=== PATIENT | male | born 1995 | race African-American/Black ===

== ENCOUNTER 2025-05-22 08:45 | Outpatient (AMB) | payer OTHER, SELFPAY ==
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
[2025-05-22 08:57] VITALS: BP 116/75; PULSE 54; RESP 16; TEMP 36.7; O2SAT 98; BMI 34.8
== END 2025-05-22 09:37 | disposition home or self-care (01) ==
LOC: HO.HMCFM 08:46
PROVIDERS: PCP Nurse Practitioner Family; Visit Provider Nurse Practitioner Family
DX: Z00.00 Encounter for general adult medical examination without abnormal findings (principal); R10.A2 Flank pain, left side; F41.9 Anxiety disorder, unspecified; E66.9 Obesity, unspecified; Z68.34 Body mass index [BMI] 34.0-34.9, adult

== ENCOUNTER 2025-05-22 08:45 | Outpatient (REF) | payer OTHER, SELFPAY ==
[2025-05-22 11:28] LABS: MANUAL DIFF FLAG NO
[2025-05-22 11:30] LABS: Appearance Urine Clear; Glucose Urine UA Negative (Negative); PH 6.0 (5.0-9.0); Specific Gravity - Urine 1.025 (1.005-1.025)
[2025-05-22 11:35] LABS: Hematocrit 48.0 % (42.0-52.0); Hemoglobin 16.4 g/dl (14.0-18.0); Imm Gran Abs Auto 0.03 X10*3/uL (0.00-0.03); Imm Gran Pct Auto 0.4 % (0.0-0.4); Lymphocytes Absolute Auto 2.1 X10*3/uL (1.2-4.9); Mean Corpuscular HGB Conc 34.2 g/dl (31.0-36.0); Mean Corpuscular Hemoglobin 30.0 pg (27.0-33.0); Mean Corpuscular Volume 87.9 fL (80.0-98.0); NRBC Abs Auto 0.000 X10*3/uL (0.0-0.012); NRBC Pct Auto 0.0 /100WBC (0.0-0.2); Platelet Count 203 X10*3/uL (160-400); Red Blood Count 5.46 X10*6/uL (4.60-5.80); White Blood Count 7.2 X10*3/uL (4.8-10.8)
[2025-05-22 13:15] LABS: Anion Gap 11 (12-20)
[2025-05-22 13:19] LABS: Alanine Aminotransferase 43 U/L (0-40); Albumin Level 4.6 g/dL (3.5-5.0); Alkaline Phosphatase 81 U/L (39-117); Aspartate Amino Transferase 30 U/L (5-37); Blood Urea Nitrogen 13 mg/dL (9-16); Calcium 9.3 mg/dL (8.4-10.2); Carbon Dioxide 25 mmol/L (22-29); Chloride 108 mmol/L (96-108); Cholesterol 214 mg/dL (<200); Estimated Glomerular Filt Rate > 60; HDL Cholesterol 50 mg/dL (>40); Potassium 3.9 mmol/L (3.3-5.1); Sodium 140 mmol/L (135-145); Total Protein 7.9 g/dL (6.5-8.0); Triglycerides 72 mg/dL (<150)
== END 2025-05-22 08:46 | disposition home or self-care (01) ==
LOC: HO.WFDLDS 08:45
PROVIDERS: PCP Nurse Practitioner Family; Visit Provider Nurse Practitioner Family
DX: Z00.00 Encounter for general adult medical examination without abnormal findings (principal); Z01.00 Encounter for examination of eyes and vision without abnormal findings; F41.9 Anxiety disorder, unspecified; R10.A2 Flank pain, left side; E66.9 Obesity, unspecified; Z68.34 Body mass index [BMI] 34.0-34.9, adult
CPT/HCPCS: 36415; 80053; 80061; 81003; 82043; 82306; 82570; 84443; 85025; 96127; 99202; 99385

== ENCOUNTER 2025-06-01 12:29 | Outpatient (AMB) | payer OTHER, SELFPAY ==
--- NOTE | 2025-06-01 12:23 | MHC.PC.OV ---
Intake Visit Reasons: Tele 2-3 wks labs review /anxiety Intake Note: patient here for Telehealth follow up on labs review and anxiety Visiting Teacher Required: No Allergies morphine Allergy (Unknown, Verified 06/01/25 12:26) Unknown oxycodone Allergy (Unknown, Verified 06/01/25 12:26) Dizziness Tobacco use date assessed: 06/01/25 Dental Screening Dental Screen Date: 06/01/25 Did you have a dental visit in the last 12 months?: No Did you have a dental problem in the last 6 months where you did not have access to dental care?: No Was dental information given to patient?: No HPI HPI Comments History of Present Illness Details 30-year-old male presents for a telehealth visit for review of recent lab results. He notes that he is anxious all this time. He has cut done on cannabis use and has been smoking 1/4 of a gram once daily since his last visit. He drinks 2-3 beers once weekly. He is not interested in psychotherapy at this time. No acute symptoms at this time. 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 1. Little interest or pleasure in doing things: not at all 2. Feeling down, depressed, or hopeless: not at all 3. Trouble falling or staying asleep, or sleeping too much: several days 4. Feeling tired or having little energy: several days 5. Poor appetite or overeating: several days 6. Feeling bad about yourself - or that you are a failure or have let yourself or your family down: not at all 7. Trouble concentrating on things, such as reading the newspaper or watching television: not at all 8. Moving or speaking so slowly that other people could have noticed. Or the opposite - being so fidgety or restless that you have been moving around a lot more than usual: not at all 9. Thoughts that you would be better off or of hurting yourself in some way: not at all Total score: 3 Depression Screening Interpretation: Negative Depression Screening Done: Yes 78029 - PHQ-9 Billing: Yes Source: Developed by Drs. Kain Conner, Marisol Quintana, Meng Jacinto and colleagues, with an educational michell from [employer]. Thrive Questionnaire Date Thrive assessed: 05/22/25 ROBEL-7 AMB Questionnaire ROBEL-7 Date ROBEL - 7 assessed: 06/01/25 Feeling nervous, anxious, or on edge: 3 = Nearly every day Not being able to stop or control worryin = Several days Worrying too much about different things: 1 = Several days Trouble relaxin = Not at all Being so restless that it is hard to sit still: 1 = Several days Becoming easily annoyed or irritable: 1 = Several days Feeling afraid as if something awful might happen: 0 = Not at all Total ROBEL-7 score (0-4 normal; 5-9 mild; 10-14 moderate; 15-21 severe): 7 Source: Developed by Drs. Kain Conner, Marisol Quintana, Meng Jacinto and colleagues, with an educational michell from [employer]. ROBEL-7 Assessment Billing ROBEL-7 Assessment Tool: ROBEL-7 Assessment 07734 Review of Systems Const Details: Denies chills, Denies fatigue, Denies fever(s), Denies headache(s) and Denies weakness Cardiac Denies chest pain, Denies claudication, Denies leg edema, Denies lightheadedness, Denies palpitations, Denies dyspnea, Denies dyspnea on exertion, Denies orthopnea and Denies other (Loss of consciousness) Resp Denies cough, Denies excessive phlegm production, Denies dyspnea, Denies dyspnea on exertion, Denies snoring and Denies wheezing Physical exam (Primary Care) Tobacco/Smoking Status: Tobacco use Status Tobacco use date assessed 06/01/25 06/01/25 12:27 Patient Tobacco Use Status Never used Tobacco 06/01/25 12:27 e-Cigarette/Vaping Use Never Used 06/01/25 12:27 PHQ-9: PHQ-9 Score PHQ-9: Total score 3 06/01/25 12:27 Depression Screening Interpretation: Negative Thrive Assessment: Date of Thrive Assessment Date Thrive assessed 05/22/25 06/01/25 12:27 Const Other: Patient is alert and oriented x3 Telehealth Telehealth Telehealth Platform: Telephone Location of provider rendering services: practice address Location of patient: address on file Patient Identification confirmed using: Name, : Yes Telehealth method: voice only Patient verbally consented to treatment: Yes Patient verbally consented to billing insurance company: Yes Patient informed of any privacy concerns related to visit: Yes Coding Level of Care Code Tele Est Pt Level 3 (79248) Diagnoses Hypercholesterolemia E78.00 Elevated ALT measurement R74.01 Elevated fasting glucose R73.01 Anxiety F41.9 Additional Codes ROBEL-7 Assessment Billing - ROBEL-7 Assessment Tool: ROBEL-7 Assessment 41192 ([id number]) PHQ-9 - 11687 - PHQ-9 Billing: Yes ([id number]) Time Spent (min) 15 Assessment & Plan Assessment & Plan (1) Hypercholesterolemia: Code(s): E78.00 - Pure hypercholesterolemia, unspecified Category: Medical Plan: Recent total cholesterol and LDL levels are elevated, 214 and 150 respectively, triglycerides and HDL levels are normal. Advised to limit foods high in saturated fat and avoid foods high in trans fat. Routine exercise encouraged. Will recheck lipid panel level in 2 months. Verbalized understanding and agreed with the plan. (2) Elevated ALT measurement: Code(s): R74.01 - Elevation of levels of liver transaminase levels Category: Medical Plan: Recent ALT level slightly elevated, 43, AST is normal. Healthy diet/with management encouraged. Will recheck lipid panel in 2 months. Verbalized understanding and agreed with the plan. (3) Elevated fasting glucose: Code(s): R73.01 - Impaired fasting glucose Category: Medical Plan: Recent fasting glucose is slightly elevated, 100. Healthy diets/weight management encouraged. Will recheck fasting glucose. Verbalized understanding and agreed with the plan. (4) Anxiety: Code(s): F41.9 - Anxiety disorder, unspecified Category: Medical Plan: He notes that he is anxious all this time. He has cut done on cannabis use and has been smoking 1/4 of a gram once daily since his last visit. He drinks 2-3 beers once weekly. He is not interested in psychotherapy at this time. ROBEL-7 score revealed mild anxiety. PHQ-9 score is normal. Hydroxyzine 25 mg three times daily ordered; advised to take as prescribed; instructed on the risks, benefits, and potential adverse reactions of the medication. Encouraged to avoid cannabis use. Follow-up in 1 month or sooner with worsening or new symptoms. Verbalized understanding and agreed with the plan. Orders: Orders Lipid Panel 2 Months E78.00 - Pure hypercholesterolemia, unspecified Medications: New hydroxyzine HCl 25 mg PO TID PRN 90 tabs 0RF anxiety
== END 2025-06-01 17:05 | disposition home or self-care (01) ==
LOC: HO.HMCFM 12:30
PROVIDERS: PCP Nurse Practitioner Family; Visit Provider Nurse Practitioner Family
DX: E78.00 Pure hypercholesterolemia, unspecified (principal); R74.01 Elevation of levels of liver transaminase levels; R73.01 Impaired fasting glucose; F41.9 Anxiety disorder, unspecified

== ENCOUNTER → 2025-06-01 12:29 | Outpatient (BNVA) | payer OTHER, SELFPAY | PROVIDERS: PCP Nurse Practitioner Family; Visit Provider Nurse Practitioner Family | DX: R74.01 Elevation of levels of liver transaminase levels (principal); E78.00 Pure hypercholesterolemia, unspecified; R73.01 Impaired fasting glucose; F41.9 Anxiety disorder, unspecified | CPT/HCPCS: 96127 ==